=== PATIENT | male | born 1995 | race Caucasian/White ===

== ENCOUNTER 2024-01-29 14:43 | Emergency (ER) | payer OTHER ==
[~2024-01-29] VITALS: Ht 188 cm; Wt 92.0 kg
[2024-01-29 17:00] VITALS: BP 128/79
== END 2024-01-29 17:00 | disposition other institution, planned readmission (95) ==
LOC: ED 14:43
DX: M50.30 Other cervical disc degeneration, unspecified cervical region (principal); Z91.030 Bee allergy status
CPT/HCPCS: 72125; 99283-25

== ENCOUNTER 2024-05-15 08:59 | Emergency (ER) | payer OTHER ==
[~2024-05-15] VITALS: Ht 188 cm; Wt 93.9 kg
[2024-05-15 09:15] VITALS: BP 132/88
== END 2024-05-15 09:15 | disposition home or self-care (01) ==
LOC: ED 08:59
DX: S00.11XA Contusion of right eyelid and periocular area, initial encounter (principal); Z91.030 Bee allergy status; W50.0XXA Accidental hit or strike by another person, initial encounter; Y93.67 Activity, basketball
CPT/HCPCS: 99283